=== PATIENT | female | born 1960 | race Caucasian/White ===

== ENCOUNTER → 2020-09-23 | Outpatient (CLI) | payer BC ==
[~2020-09-23] MED LIST: ASPIR-LOW81 MG PO; BETAPACE120 MG PO; BIOTIN2500 MCG PO; ELIQUIS5 MG PO; K-DUR TAB 20 M20 MEQ PO; LASIX40 MG PO; LEVOTHYROXINE50 MCG PO; PRINIVIL20 MG PO; VITAMIN D1000 UNIT PO
== END ==
LOC: RAD 11:19
DX: R91.1 Solitary pulmonary nodule (principal); J84.10 Pulmonary fibrosis, unspecified
CPT/HCPCS: 71046

== ENCOUNTER → 2021-02-11 | Outpatient (CLI) | payer BC | LOC: MAMO 10-16 09:30 | DX: Z12.31 Encounter for screening mammogram for malignant neoplasm of breast (principal) | CPT/HCPCS: 77063; 77067 ==

== ENCOUNTER → 2021-04-18 | Outpatient (CLI) | payer BC ==
[~2021-04-18] MED LIST changes: +ZINC50 M3 PO
[2021-04-18 08:01] LABS: HEMOGLOBIN 12.3 gm/dl (12.3-15.3); RED BLOOD COUNT 3.9 M/UL (4.00-5.10); WHITE BLOOD COUNT 10.2 K/UL (4.5-11.0)
[2021-04-18 08:24] LABS: BUN/CREATININE RATIO 26 (0-10)
== END ==
LOC: CATH 06:58
PROVIDERS: Internal Medicine Cardiovascular Disease
DX: Z01.818 Encounter for other preprocedural examination (principal); I48.0 Paroxysmal atrial fibrillation; I48.92 Unspecified atrial flutter; Z20.822 Contact with and (suspected) exposure to COVID-19
CPT/HCPCS: 80048; 85027; 92960; 93005; J1200; J1742; J2250; J2310; J3010; J7040

== ENCOUNTER → 2021-04-21 | Outpatient (CLI) | payer BC, OTHER | LOC: HEART 5 14:38 | DX: R06.02 Shortness of breath (principal) | CPT/HCPCS: 94010 ==

== ENCOUNTER → 2021-06-18 | Outpatient (CLI) | payer BC, OTHER ==
[~2021-06-18] MED LIST changes: +AMIODARONE HCL200 MG PO; +ZESTRIL20 MG PO
[2021-06-18 08:06] LABS: HEMOGLOBIN 13.7 gm/dl (12.3-15.3); RED BLOOD COUNT 4.35 M/UL (4.00-5.10)
[2021-06-18 09:03] LABS: BUN/CREATININE RATIO 24 (0-10)
== END ==
LOC: CATH 07:03
PROVIDERS: Internal Medicine Cardiovascular Disease
DX: I48.19 Other persistent atrial fibrillation (principal); I13.0 Hypertensive heart and chronic kidney disease with heart failure and stage 1 through stage 4 chronic kidney disease, or unspecified chronic kidney disease; N18.30 Chronic kidney disease, stage 3 unspecified; I50.22 Chronic systolic (congestive) heart failure; I42.0 Dilated cardiomyopathy; Z79.82 Long term (current) use of aspirin; Z79.01 Long term (current) use of anticoagulants; Z79.899 Other long term (current) drug therapy; Z82.49 Family history of ischemic heart disease and other diseases of the circulatory system
CPT/HCPCS: 36415; 80048; 85027; 92960; 93005; J1200; J1742; J2250; J2310; J3010; J7040

== ENCOUNTER → 2021-06-25 | Outpatient (CLI) | payer BC, OTHER | LOC: HEART 5 09:14 | DX: R06.02 Shortness of breath (principal); Z79.899 Other long term (current) drug therapy | CPT/HCPCS: 94010; 94729 ==